=== PATIENT | female | born 1970 | race Caucasian/White ===

== ENCOUNTER 2024-03-22 09:56 | Outpatient (OUT) | payer BC, SELFPAY ==
[2024-03-22 10:23] LABS: Eosinophils Absolute Auto 0.1 10^3/uL (0.0-0.7); Eosinophils Percent Auto 3.2 % (0.9-7.0); Hematocrit 40.6 % (36.0-48.0); Hemoglobin 13.2 g/dL (12.0-16.0); Immature Granulocytes Abs Auto 0.02 10^3/uL (0.00-0.03); Immature Granulocytes Pct Auto 0.6 % (0.0-0.5); Lymphocytes Absolute Auto 0.9 10^3/uL (1.2-3.8); Lymphocytes Percent Auto 29.6 % (20.5-60.0); Mean Corpuscular HGB Conc 32.5 g/dL (29.9-35.2); Mean Corpuscular Hemoglobin 29.3 pg (26.7-34.0); Mean Corpuscular Volume 90.2 fL (81.0-99.0); Mean Platelet Volume 9.5 fL (9.5-13.5); Monocytes Absolute Auto 0.4 10^3/uL (0.3-0.8); Monocytes Percent Auto 11.3 % (1.7-12.0); Neutrophils Absolute Auto 1.7 10^3/uL (1.4-6.5); Neutrophils Percent Auto 54.3 % (43.0-75.0); Platelet Count 248 10^3/uL (150-450); Red Cell Distribution Width 12.9 % (11.0-15.0); White Blood Count 3.1 10^3/uL (4.0-11.0)
[2024-03-22 10:43] LABS: Estimated Average Glucose 114 mg/dL; Glycohemoglobin A1C 5.6 % (4.5-6.2)
[2024-03-22 11:19] LABS: Alanine Aminotransferase 33 U/L (14-59); Albumin Level 3.6 g/dL (3.4-5.0); Alkaline Phosphatase 84 U/L (46-116); Anion Gap 11.6; Aspartate Amino Transferase 20 U/L (15-37); BUN Creatinine Ratio 19.2; Bilirubin Total 0.6 mg/dL (0.2-1.0); Calcium 9.2 mg/dL (8.5-10.1); Carbon Dioxide 28.1 mmol/L (21.0-32.0); Chloride 104 mmol/L (98-107); Chol HDL Ratio 5.5; Cholesterol 270 mg/dL (<=200); Estimated GFR (African America >60 (>=60); Estimated GFR (Non-African Ame >60 (>=60); Free T3 2.57 pg/mL (2.18-3.98); Globulin 3.7 g/dL; Glucose 100 mg/dL (74-106); HDL Cholesterol 49 mg/dL (40-60); Potassium 3.7 mmol/L (3.5-5.1); Sodium 140 mmol/L (136-145); Thyroid Stimulating Hormone 1.618 uIU/mL (0.358-3.740); Total Protein 7.3 g/dL (6.4-8.2); Triglycerides 139 mg/dL (<=150); VLDL CHOLESTEROL 27.8 mg/dL
[2024-03-23 08:11] LABS: Insulin 12.5 uIU/mL (2.6-24.9)
== END 2024-03-22 09:57 | disposition home or self-care (01) ==
LOC: LAB 10:00
PROVIDERS: PCP Family Medicine; Visit Provider Family Medicine
DX: Z00.00 Encounter for general adult medical examination without abnormal findings (principal)
CPT/HCPCS: 36415; 80053; 80061; 83036; 83525; 83540; 84436; 84443; 84481; 85025

== ENCOUNTER 2024-06-14 08:31 | Emergency (ER) | payer BC, SELFPAY ==
[2024-06-14 08:41] VITALS: BP 170/100; PULSE 85; TEMP 36.6; O2SAT 97; BMI 35.5
--- NOTE | 2024-06-14 08:52 | ECG_ITS ---
The [facility] Test Date: 2024-06-14 Pat Name: JOSSELINE KISER Department: Room: - Gender: Female Pressure Vessel Inspector: : 1970 Requested By: LYNNE LENNON Order Number: [id number] Reading MD: LYNNE LENNON Measurements Intervals [place] Rate: 74 P: 33 MO: 154 QRS: 63 QRSD: 82 T: 42 QT: 360 QTc: 388 Interpretive Statements 1100 Sinus rhythm 9110 normal ECG No previous ECG available for comparison Electronically Signed On 06-15-2024 6:36:55 EST by LYNNE LENNON
--- NOTE | 2024-06-14 08:52 | US_ITS ---
The [address] [address] Patient Name: JOSSELINE KISER MRN: [id number] date: 1970 Sex: F Assigned Patient Location: ER Current Patient Location: ER Accession/Order Number: [id number] Exam Date: 06/14/2024 09:30 Report Date: 06/14/2024 09:56 At the request of: NIGEL RAMOS Procedure: US right upper quadrant EXAM: US right upper quadrant HISTORY: Pain COMPARISON: None. TECHNIQUE: Grayscale, color and Doppler FINDINGS: The liver is normal in size and contour measuring 15.5 cm in length. Diffuse increase in hepatic echotexture suggesting hepatic steatosis. Hepatopedal flow in the main portal vein with velocity 27 cm/s The gallbladder is normal. The wall measures 1.1 mm. Negative sonographic Ivan sign. The common bile duct measures 2.2 mm Visualized pancreas is normal The right kidney is normal measuring 10.7 x 4.9 x 4.8 cm No ascites US/US right upper quadrant IMPRESSION: Echogenic liver suggesting hepatic steatosis Electronically authenticated by: SUNDAY CALDERON Date: 06/14/2024 09:56
--- OUTSIDE RECORDS SUMMARY | 2024-06-14 08:56 | XMS_ITS | CCD ---
Author Organization [facility] Care Team Providers Care Senior Professional Services Consultant Name Role Phone DR LYNNE LENNON Admitting DR LYNNE Rodney Attending Unavailable DR LYNNE LENNON Primary Care Unavailable ALEX HERMAN Attending Unavailable ALEX HERMAN Attending Unavailable Allergies Allergy Classification Reported Allergen(s) Allergy Type Date of Onset Reaction(s) Facility (1 source) Penicillins Drug allergy (disorder) [facility] Repository (1 source) Sulfonamides (Antibiotic) Drug allergy (disorder) [facility] Encounters Encounter Date Encounter Type Care Provider Facility Start: 09-16-2023 End: 09-17-2023 ambulatory ALEX Scarlett JAFFEO Not Available Start: 09-01-2023 End: 09-02-2023 ambulatory ALEX Scarlett JAFFEO Not Available Start: 04-23-[address] LYNNE LENNON Facility : Payers Date Payer Category Payer Unknown [id number] 1970 Unknown [id number] 1970 Unknown [id number] 1970 Unknown [id number] 2.16.84 [id number] 1959 Self-pay [id number] Summary Purpose Family History No Family History Records FoundNo Family History Records Found Advance Directives No Advanced Directives Records FoundNo Advanced Directives Records Found Additional Source Comments INFORMATION SOURCE (unrecogn ized section and content) DATE CREATED AUTHOR 04/23/2022 [facility] DATE CREATED AUTHOR 'Luis Manuel ORGANIZ [employer] 09/21/2023 [facility] EPIC FOR RECORDS PERTAINING TO PATIENTS WHO ARE OR HAVE BEEN ENROLLED IN A CHEMICAL DEPENDENCY/SUBSTANCEABUSE PROGRAM, SOME INFORMATION MAY BE OMITTED. This clinical summary was aggregated from multiple sources. Caution should be exercised in using it in the provision of clinical care. This summary normalizes information from multiple sources, and as a consequence, information in this document may materially change the coding, format and clinical context of patient data. In addition, data may be omitted in some cases. CLINICAL DECISIONS SHOULD BE BASED ON THE PRIMARY CLINICAL RECORDS. [facility]. provides no warranty or guarantee of the accuracy or completeness of information in this document.
[2024-06-14] MEDS: ONDANSETRON PF 4 MG/2 ML VIAL IV (09:00)
[2024-06-14] MEDS: MORPHINE SULFATE 4 MG/ML VIAL IV ×2 (09:00→10:34)
[2024-06-14 09:03] LABS: Bilirubin Urine NEGATIVE (NEGATIVE); Blood Urine MODERATE (NEGATIVE); Clarity Urine CLEAR (CLEAR); Color Urine LT. YELLOW (YELLOW); Glucose Urine UA NEGATIVE (NEGATIVE); Ketones Urine NEGATIVE (NEGATIVE); Leukocyte Esterase Urine NEGATIVE (NEGATIVE); Nitrite Urine NEGATIVE (NEGATIVE); Protein Urine NEGATIVE (NEG/TRACE); Urobilinogen Urine 0.2 EU/dL (0.2-1.0)
[2024-06-14 09:03] LABS: Basophils Percent Auto 0.5 % (0.2-2.0); Eosinophils Absolute Auto 0.1 10^3/uL (0.0-0.7); Eosinophils Percent Auto 0.9 % (0.9-7.0); Hemoglobin 13.8 g/dL (12.0-16.0); Immature Granulocytes Abs Auto 0.02 10^3/uL (0.00-0.03); Immature Granulocytes Pct Auto 0.4 % (0.0-0.5); Lymphocytes Percent Auto 17.7 % (20.5-60.0); Mean Corpuscular HGB Conc 32.1 g/dL (29.9-35.2); Mean Corpuscular Hemoglobin 29.7 pg (26.7-34.0); Mean Corpuscular Volume 92.7 fL (81.0-99.0); Mean Platelet Volume 9.6 fL (9.5-13.5); Monocytes Absolute Auto 0.4 10^3/uL (0.3-0.8); Monocytes Percent Auto 7.8 % (1.7-12.0); Neutrophils Percent Auto 72.7 % (43.0-75.0); Platelet Count 286 10^3/uL (150-450); Red Blood Count 4.64 10^6/uL (4.20-5.40); Red Cell Distribution Width 13.2 % (11.0-15.0); White Blood Count 5.5 10^3/uL (4.0-11.0)
--- NOTE | 2024-06-14 09:03 | ED.ABDPAIN1 ---
HPI - Abdominal Pain General Chief Complaint: Abdominal Pain Stated Complaint: abdominal pain Time Seen by Provider: 06/14/24 08:45 Source: patient Mode of arrival: walk-in Limitations: no limitations History of Present Illness HPI narrative: 53-year-old female presents for abdominal pain. It is in her right upper quadrant and this time it started yesterday. She has had pains like this on and off for about a year and has not had it looked at. This event is the worst that she has had in the past year. It is associated with nausea and vomiting. No trauma or fever. Related Data Home Medications ?Medication ?Instructions ?Recorded ?Confirmed aripiprazole 2 mg tablet 2 mg PO DAILY 06/14/24 06/14/24 carvedilol 12.5 mg tablet 12.5 mg PO BID 06/14/24 06/14/24 desvenlafaxine succinate 100 mg 100 mg PO DAILY 06/14/24 06/14/24 tablet,extended release 24 hr promethazine 25 mg tablet 25 mg PO DAILY 06/14/24 06/14/24 simvastatin 20 mg tablet 20 mg PO DAILY 06/14/24 06/14/24 Previous Rx's ?Medication ?Instructions ?Recorded acetaminophen 300 mg-codeine 30 mg 1 tab PO Q6H PRN pain 5 days #20 06/14/24 tablet tabs dicyclomine 10 mg capsule 10 mg PO QID PRN abdominal pain 06/14/24 #20 caps ondansetron 4 mg disintegrating 4 mg PO Q6H PRN nausea and 06/14/24 tablet vomiting #20 tabs Allergies Allergy/AdvReac Type Severity Reaction Status Date / Time Sulfa (Sulfonamide AdvReac Severe Swelling Verified 06/14/24 08:39 Antibiotics) of Lip/Tongue/Throat Penicillins AdvReac Unknown Unknown Verified 06/14/24 08:39 Review of Systems ROS Narrative A ten point review of systems is negative except as noted above. Exam Narrative Exam Narrative: Nurses note and vital signs reviewed and patient is not hypoxic. General: The patient appears uncomfortable Skin: Warm, dry, no pallor noted. There is no rash noted. Head: Normocephalic, atraumatic Eye: Normal conjunctiva, no drainage Ears, Nose, Mouth, and Throat: oral mucosa is moist. Nares patent. Cardiovascular: Regular Rate and Rhythm Respiratory: Patient is in no distress, no accessory muscle use, lungs are clear to auscultation, no wheezing, rales or rhonchi Back: non-tender GI: Tender only in the right upper quadrant without mass. The rest of the abdomen is nontender, no rebound. Musculoskeletal: The patient has no evidence of calf tenderness, no pitting edema, symmetrical pulses noted bilaterally Neurological: A&O, normal speech Psychiatric: Cooperative Constitutional Vital Signs, click to edit/add: Last Vital Signs Temp 98.7 F 06/14/24 10:31 Pulse 77 06/14/24 10:31 Resp 20 06/14/24 10:31 BP 155/100 H 06/14/24 10:31 Pulse Ox 98 06/14/24 10:31 O2 Del Method Room Air 06/14/24 10:31 Course Vital Signs Vital signs: Vital Signs Temperature 97.9 F 06/14/24 08:41 Pulse Rate 85 06/14/24 08:41 Respiratory Rate 18 06/14/24 08:41 Blood Pressure 170/100 H 06/14/24 08:41 Pulse Oximetry 97 06/14/24 08:41 Oxygen Delivery Method Room Air 06/14/24 08:41 Temperature 98.7 F 06/14/24 10:31 Pulse Rate 77 06/14/24 10:31 Respiratory Rate 20 06/14/24 10:31 Blood Pressure 155/100 H 06/14/24 10:31 Pulse Oximetry 98 06/14/24 10:31 Oxygen Delivery Method Room Air 06/14/24 10:31 MDM - Abdominal Pain MDM Narrative Medical decision making narrative: Gallbladder ultrasound and CT are both negative. Her blood work is negative. Urine shows microscopic hematuria and culture is pending. She will follow-up with her PCP regarding the microscopic hematuria. Treatment diagnosis and follow-up were discussed with the patient. Differential Diagnosis Differential diagnosis: Likely abdominal pain, constipation, diverticulitis, gastroenteritis, pancreatitis and small bowel obstruction Lab Data Attestation: I reviewed the patient's lab results. Labs: Lab Results 06/14/24 06/14/24 Range/Units 08:48 08:53 WBC 5.5 (4.0-11.0) 10^3/uL RBC 4.64 (4.20-5.40) 10^6/uL Hgb 13.8 (12.0-16.0) g/dL Hct 43.0 (36.0-48.0) % MCV 92.7 (81.0-99.0) fL MCH 29.7 (26.7-34.0) pg MCHC 32.1 (29.9-35.2) g/dL RDW 13.2 (11.0-15.0) % Plt Count 286 (150-450) 10^3/uL MPV 9.6 (9.5-13.5) fL Neut % (Auto) 72.7 (43.0-75.0) % Lymph % (Auto) 17.7 L (20.5-60.0) % Mobile % (Auto) 7.8 (1.7-12.0) % Eos % (Auto) 0.9 (0.9-7.0) % Baso % (Auto) 0.5 (0.2-2.0) % Neut # (Auto) 4.0 (1.4-6.5) 10^3/uL Lymph # (Auto) 1.0 L (1.2-3.8) 10^3/uL Mobile # (Auto) 0.4 (0.3-0.8) 10^3/uL Eos # (Auto) 0.1 (0.0-0.7) 10^3/uL Baso # (Auto) 0.0 (0.0-0.1) 10^3/uL Abs Immat Gran (auto) 0.02 (0.00-0.03) 10^3/uL Imm/Tot Granulo (auto) 0.4 (0.0-0.5) % Sodium 145 (136-145) mmol/L Potassium 3.8 (3.5-5.1) mmol/L Chloride 107 (98-107) mmol/L Carbon Dioxide 30.4 (21.0-32.0) mmol/L Anion Gap 11.4 BUN 10.0 (7.0-18.0) mg/dL Creatinine 0.74 (0.55-1.02) mg/dL Est GFR ( Amer) >60 (>=60 mL/min/1.73m^2) Est GFR (Non-Af Amer) >60 (>=60 mL/min/1.73m^2) BUN/Creatinine Ratio 13.5 Glucose 123 H (74-106) mg/dL Calcium 9.0 (8.5-10.1) mg/dL Total Bilirubin 0.6 (0.2-1.0) mg/dL Direct Bilirubin 0.1 (0.0-0.2) mg/dL AST 25 (15-37) U/L ALT 39 (14-59) U/L Alkaline Phosphatase 88 (46-116) U/L Total Protein 7.2 (6.4-8.2) g/dL Albumin 3.7 (3.4-5.0) g/dL Globulin 3.5 g/dL Albumin/Globulin Ratio 1.1 Amylase 41 (25-115) U/L Lipase 23.0 (16.0-77.0) U/L Urine Color Lt. yellow (YELLOW) Urine Clarity Clear (CLEAR) Urine pH 6.0 (5.0-9.0) Ur Specific [place] 1.010 (1.005-1.025) Urine Protein Negative (NEG/TRACE) mg/dL Urine Glucose (UA) Negative (NEGATIVE) mg/dL Urine Ketones Negative (NEGATIVE) mg/dL Urine Occult Blood Moderate A (NEGATIVE) Urine Nitrite Negative (NEGATIVE) Urine Bilirubin Negative (NEGATIVE) Urine Urobilinogen 0.2 (0.2-1.0) EU/dL Ur Leukocyte Esterase Negative (NEGATIVE) Urine RBC 5-10 A (0-2) #/HPF Urine WBC None seen (NONE SEEN) #/HPF Ur Squamous Epith Cells Few A (NONE/RARE) #/LPF Urine Crystals None seen (None Seen) #/HPF Urine Bacteria Small A (NONE SEEN) #/HPF Urine Casts None seen (NONE SEEN) #/LPF Urine Mucus None seen (NONE SEEN) Ur Culture Indicated? Yes Imaging Data CT scan - abdomen: Radiologist's impression: ITS Impressions Upper Quadrant Ultrasound 06/14/24 08:52 IMPRESSION: Echogenic liver suggesting hepatic steatosis Electronically authenticated by: SUNDAY CALDERON Date: 06/14/2024 09:56 Abdomen/Pelvis CT 06/14/24 09:53 IMPRESSION: 1. No acute or suspicious findings to account for patient's right upper quadrant symptoms. Electronically authenticated by: SHONA MCCORMICK Date: 06/14/2024 10:50 ECG Data Attestation: I personally reviewed and interpreted this ECG as follows: (EKG on my interpretation shows a heart rate of 74 no acute findings.) Discharge Plan Discharge Chief Complaint: Abdominal Pain Clinical Impression: Abdominal pain, Microscopic hematuria Patient Disposition: Home, Self-Care Time of Disposition Decision: 11:09 Condition: Good Mode of Transportation: Private Vehicle Prescriptions / Home Meds: New acetaminophen-codeine 300-30 mg tablet 1 tab PO Q6H PRN (Reason: pain) 5 Days Qty: 20 0RF ondansetron 4 mg tablet,disintegrating 4 mg PO Q6H PRN (Reason: nausea and vomiting) Qty: 20 0RF dicyclomine 10 mg capsule 10 mg PO QID PRN (Reason: abdominal pain) Qty: 20 0RF No Action promethazine 25 mg tablet 25 mg PO DAILY aripiprazole 2 mg tablet 2 mg PO DAILY carvedilol 12.5 mg tablet 12.5 mg PO BID desvenlafaxine succinate 100 mg tablet extended release 24 hr 100 mg PO DAILY simvastatin 20 mg tablet 20 mg PO DAILY Print Language: Chadian Instructions: Hematuria (ED), Abdominal Pain (ED) Additional Instructions: Have your urine rechecked by your PCP. There was a small amount of blood in your urine today. Referrals: Lloyd Andrews MD [Primary Care Provider] - 1 week
[2024-06-14 09:14] LABS: Bacteria Urine SMALL #/HPF (NONE SEEN); Cast Seen? NONE SEEN #/LPF (NONE SEEN); Crystals Seen? None Seen #/HPF (None Seen); Mucus Urine NONE SEEN (NONE SEEN); Squamous Epithelial Cell Urine FEW #/LPF (NONE/RARE); Urine Culture Indicated YES; WBC Urine NONE SEEN #/HPF (NONE SEEN)
[2024-06-14 09:18] LABS: Alanine Aminotransferase 39 U/L (14-59); Albumin Globulin Ratio 1.1; Albumin Level 3.7 g/dL (3.4-5.0); Alkaline Phosphatase 88 U/L (46-116); Amylase 41 U/L (25-115); Anion Gap 11.4; Aspartate Amino Transferase 25 U/L (15-37); BUN Creatinine Ratio 13.5; Bilirubin Direct 0.1 mg/dL (0.0-0.2); Bilirubin Total 0.6 mg/dL (0.2-1.0); Carbon Dioxide 30.4 mmol/L (21.0-32.0); Chloride 107 mmol/L (98-107); Estimated GFR (African America >60 (>=60 mL/min/1.73m^2); Estimated GFR (Non-African Ame >60 (>=60 mL/min/1.73m^2); Globulin 3.5 g/dL; Glucose 123 mg/dL (74-106); Potassium 3.8 mmol/L (3.5-5.1); Sodium 145 mmol/L (136-145); Total Protein 7.2 g/dL (6.4-8.2)
[2024-06-14 09:21] VITALS: O2SAT 99
--- NOTE | 2024-06-14 09:53 | CT_ITS ---
[address] [address] Patient Name: JOSSELINE KISER MRN: [id number] date: 1970 Sex: F Assigned Patient Location: ER Current Patient Location: Accession/Order Number: [id number] Exam Date: 06/14/2024 10:12 Report Date: 06/14/2024 10:50 At the request of: NIGEL RAMOS Procedure: CT abdomen pelvis w con EXAMINATION: CT abdomen pelvis w con HISTORY: Right upper quadrant pain COMPARISON: Ultrasound right upper quadrant 06/14/2024 TECHNIQUE: Axial, Coronal, and Sagittal images were obtained without and/or with IV contrast as indicated by examination type. Dose reduction techniques were achieved by using automated exposure control and/or adjustment of mA and/or kV according to patient size and/or use of iterative reconstruction technique. FINDINGS: LUNG BASES: No visible pulmonary or pleural disease. LIVER: Mild fatty infiltration. No enlargement, atrophy, suspicious density, or significant focal lesion. BILIARY: No dilatation or calcification. PANCREAS: No lesion, fluid collection, or abnormal duct dilatation. SPLEEN: No enlargement or focal lesion. ADRENALS: No mass or enlargement. KIDNEYS: No mass, obstruction, or calcification. BOWEL/MESENTERY: Numerous small diverticula scattered along the length of the colon; no acute inflammatory changes. No visible mass, obstruction, or bowel wall thickening. Normal appendix. AORTA/VASCULAR: No aneurysm or dissection. RETROPERITONEUM: No mass or adenopathy. LYMPH NODES: No adenopathy. URINARY BLADDER: No visible focal wall thickening, lesion, or calculus. PELVIC ORGANS: No visible mass. Pelvic organs appropriate for patient age. ABDOMINAL WALL: No mass or hernia. BONES: No bony lesion or fracture. OTHER: Negative. CT/CT abdomen pelvis w con IMPRESSION: 1. No acute or suspicious findings to account for patient's right upper quadrant symptoms. Electronically authenticated by: SHONA MCCORMICK Date: 06/14/2024 10:50
[2024-06-14 10:31] VITALS: BP 155/100; PULSE 77; TEMP 37.1; O2SAT 98
[2024-06-14 11:21] VITALS: BP 148/106; PULSE 78; O2SAT 99
== END 2024-06-14 11:22 | disposition home or self-care (01) ==
PROVIDERS: Emergency Provider Emergency Medicine; PCP Family Medicine
DX: R10.11 Right upper quadrant pain (principal); R31.29 Other microscopic hematuria
CPT/HCPCS: 36415; 74177; 76705; 80048; 80076; 81001; 82150; 83690; 85025; 87086; 93005; 96374; 96375; 96376; 99285; J2270; J2405; Q9967

== ENCOUNTER 2025-01-26 12:55 | Outpatient (OUT) | payer BC, SELFPAY ==
--- OUTSIDE RECORDS SUMMARY | 2024-03-29 03:48 | XMS_ITS ---
Author Organization [facility] in [place] Address [address] [place] [address] Care Team Providers Care Relays Draftsperson Name Role Phone Jared Andrews Primary Care Provider Medications Medication SIG (Take, Route, Fr equency, Duration) Notes Start Date End Date Status Simvastatin 20 MG 1 tablet Orally Once a day for 90 days Active Encounters Encounter Location Date Provider Diagnosis [facility] [address] [place] [address] 03/29/2024 Jared Andrews Well adult Z00.00 Assessments Encounter Date Diagnosis (ICD Code) Assessment Notes Treatment Notes Treatment Clinical Notes Section Notes 03/29/2024 Well adult (ICD-10 - Z00.00) Plan Of Treatment Medication Medication Name Sig Start Date Stop Date Notes Simvastatin 20 MG 1 tablet Orally Once a day for 90 days Progress Notes * TALIADotty HONG LDOB:[birth year] (53 yo F)Acc No.[id number]:03/29/2024 Patient: Dotty WEBB :1970 A ge:53 Y S ex:Female Address:[address] [place] [address] * Refills Refill Simvastatin Tablet, 20 MG, Orally, 90 Tablet, 1 tablet, Once a day, 90 days, Refills=3 * true * Date: Generated for Printi ng/Faxing/eTransmitting on: 0 01/26/2025 01:01 PM EDT
--- OUTSIDE RECORDS SUMMARY | 2024-10-27 07:00 | XMS_ITS ---
Author Organization [facility] in [place] Address [address] [place] [address] Care Team Providers Care Lighting Adviser Name Role Phone Jared Andrews Primary Care Provider Allergies Allergen (clinical drug ingredient) Drug/Non Drug Allergy documented on EMR Reaction Allergy Type Onset Date Status Substance with sulfonamide structure and antibacterial mechanism of action (substance) Sulfa Antibiotics childhood Drug Allergy Active Penicillin childhood Drug Allergy Active REASON FOR VISIT right ear pain- ongoing for a month- stabbing pain goes down face to jaw and into chin, Has tried warm compresses, Tylenol, Motrin, Benadryl Medications Medication SIG (Take, Route, Frequency, Duration) Notes Start Date End Date Status Desvenlafaxine Succinate ER 100 MG TAKE 1 TABLET BY MOUTH EVERY DAY for 90 days Active Imitrex 100 MG 1 tablet Orally as needed at onset of migraine, may repeat in one hour- max 2 daily Active Promethazine HCl 25 MG TAKE 1 TABLET BY MOUTH ONCE DAILY NEEDED 90 DAYS for 90 Active Rexulti 0.5 MG 1 tablet Orally Once a day for 30 day(s) 03/22/2024 Active Carvedilol 12.5 MG TAKE 1 TABLET BY TWICE A DAY for 90 Active Hwuhjpqe-Nwmcyfpva-WQ 3.5-63252-3 4 drops into affected ear Otic Three times a day 10/27/2024 Active Ciprofloxacin HCl 500 MG 1 tablet Orally every 12 hrs for 10 days 10/27/2024 Active Simvastatin 20 MG 1 tablet Orally Once a day for 90 days Active Social History Tobacco Use: Social History Observation Description Date Details (start date - stop date) Former Smoker 07/14/1984 - 07/14/1991 Tobacco Use/Smoking Question Answer Notes Patient is a former smoker When did you start smoking? 07/14/1984 When did you stop smoking? 07/14/1991 Vital Signs Weight 221.4 lbs 10/27/2024 Height 66 in 10/27/2024 Blood pressure systolic 124 mm Hg 10/28/19 25 Blood pressure diastolic 84 mm Hg 025 BMI 35.73 kg/m2 10/27/2024 Encounters Encounter Location Date Provider Diagnosis [facility] [address] [place] [address] 10/27/2024 Jared Andrews Acute otitis media, unspecified otitis media type H66.90 and Otalgia, unspecified laterality H92.09 Assessments Encounter Date Diagnosis (ICD Code) Assessment Notes Treatment Notes Treatment Clinical Notes Section Notes 10/27/2024 Acute otitis media, unspecified otitis media type (ICD-10 - H66.90) You have been prescribed antibiotics for otitis media. Antibiotics may bother your stomach, so try taking them with a light meal (unless instructed otherwise by your pharmacist). It is important to take them until they are finished. You can use ukgu-axb-ditwbxb acetaminophen or ibuprofen if needed for pain. You have been prescribed antibiotics. You should be extra vigilant about hand washing or using hand high lighter gel. You should follow up with your Primary Care Physician or return to clinic if not improving in the next 3-5 days. 10/27/2024 Otalgia, unspecified laterality (ICD-10 - H92.09) Plan Of Treatment Medication Medication Name Sig Start Date Stop Date Notes Dzivorai-Spkcgithv-EG 3.5-70669-8 4 drops into affected ear Otic Three times a day 10/27/2024 Ciprofloxacin HCl 500 MG 1 tablet Orally every 12 hrs for 10 days 10/27/2024 Treatment Notes Assessment Notes Acute otitis media, unspecif ied otitis media type You have been prescribed antibiotics for otitis media. Antibiotics may bother your stomach, so try taking them with a light meal (unless instructed otherwise by your pharmacist). It is important to take them until they are finished. You can use pfzs-esj-tslkjij acetaminophen or ibuprofen if needed for pain. You have been prescribed antibiotics. You should be extra vigilant about hand washing or using hand high lighter gel. You should follow up with your Primary Care Physician or return to clinic if not improving in the next 3-5 days. Next Appt Details Follow Up: 3-5 days, if no i mprovement, Reason: Progress Notes * Dotty BROWN LDOB:[birth year] (54 yo F)Acc No.[id number]:10/27/2024 Progress Note Patient: Dotty WEBB Provider: Aniya Andrews ([facility])MD :1970 A ge:54 Y S ex:Female Date:10/27/2024 Address:[facility] [place], [id number] Check In:10:54 AM ESTCheck O ut:11:57 AM EST Subjective: * Chief Complaints: * R ight ear pain- ongoing for a month- stabbing pain goes down face to jaw and into chinHas tried warm compresses, Tylenol, Motrin, Benadryl * HPI: D epression Screening: PHQ-2 (2015 Edition) T otal Score 0 L ittle interest or pleasure in doing things?�Not at all F eeling down, depressed, or hopeless? N ot at all R ear pain for a month - heat helps. O titis Media: The patient complains of s ymptoms of an ear infection.� The symptoms have been present for 1 -2 days. The symptoms are m oderate. Symptomatic treatment has included O TC medication. Associated symptoms include p ain in one or both ears, fever. * ROS: E NT: Comments S ee HPI for details. C ardiovascular: Edema d enies. P alpitations d enies. � R espiratory: Chest pain d enies. C ough d enies. � G astrointestinal: Abdominal pain d enies. D ecreased appetite d enies. S kin: Rash d enies. * Active Problem List E78.00 Pure hypercholestero lemia, unspecified Modified On:03/20/2023W/U Status:confirmed I10 Essential (primary) hypertension Modified On:03/20/2023/U Status:confirmed F32.9 Major depressive dis order, single episode, unspecified Modified On:03/20/2023 Status:confirmed G43.909 Migraine, unspecifie d, not intractable, without status migrainosus Modified On:03/20/2023U Status:confirmed F43.10 Post-traumatic stres s disorder, unspecified Modified On:03/20/2023U Status:confirmed Z00.00 Well adult Modified On:03/24/2023 Status:confirmed * Medical History: * Surgical History: T ONSILLECTOMY,UNDER 12YRS DELIVERY x3 * Hospitalization/Major Diagno stic Procedure: D enies Past Hospitalization * Family History: F ather: . M other: alive. S ister(s): alive, Lupus, diagnosed with Diabetes mellitus without mention of complication, type II or unspecified type, not stated as uncontrolled. Son(s): alive. D aughter(s): alive. 2 sister(s) . 1 son(s) , 2 daughter(s) - healthy. .� Unknown to Fathers medical history. * Social History: T obacco Use: T obacco Use/Smoking P atient is a f ormer smoker W hen did you start smoking? 0 07/14/1984 W hen did you stop smoking? 0 07/14/1991 * Medications: T akingCarvedilol 12.5 MG Tablet TAKE 1 TABLET BY MOUTH TWICE A DAY Desvenlafaxine Succinate ER 100 MG Tablet Extended Release 24 Hour TAKE 1 TABLET BY MOUTH EVERY DAY Imitrex(SUMAtriptan Succinate) 100 MG Tablet 1 tablet Orally as needed at onset of migraine, may repeat in one hour- max 2 daily Promethazine HCl 25 MG Tablet TAKE 1 TABLET BY MOUTH ONCE DAILY NEEDED 90 DAYS Rexulti(Brexpiprazole) 0.5 MG Tablet 1 tablet Orally Once a day Simvastatin 20 MG Tablet 1 tablet Orally Once a day Medication List reviewed and reconciled with the patientTaking Carvedilol 12.5 MG Tablet TAKE 1 TABLET BY MOUTH TWICE A DAY Taking Desvenlafaxine Succinate ER 100 MG Tablet Extended Release 24 Hour TAKE 1 TABLET BY MOUTH EVERY DAY Taking Imitrex(SUMAtriptan Succinate) 100 MG Tablet 1 tablet Orally as needed at onset of migraine, may repeat in one hour- max 2 daily Taking Promethazine HCl 25 MG Tablet TAKE 1 TABLET BY MOUTH ONCE DAILY NEEDED 90 DAYS Taking Rexulti(Brexpiprazole) 0.5 MG Tablet 1 tablet Orally Once a day Taking Simvastatin 20 MG Tablet 1 tablet Orally Once a day Medication List reviewed and reconciled with the patient * Allergies: S ulfa Antibiotics: childhood - AllergyPenicillin: childhood - Allergyno[Allergies Verified] Objective: * Vitals: W t:221.4lbs, Ht: 66 in, BP:124/84mm Hg, BMI:35.73Index, Ht-cm: 167.64 cm, Wt-k.43 kg. * Examination: G eneral Examination: GENERAL APPEARANCE: in no acute distress, well developed, well nourished. EYES: pupils equal, round, reactive to light and accomodations, sclera non-icteric. ENT: normocephalic, autraumatic. EARS: . ORAL CAVITY: R OE. THROAT: no erythema, no exudate. LUNGS: clear to auscultation bilaterally. CARDIO: regular rate and rhythm, S1, S2 normal, no murmurs. ABDOMEN: soft, nontender, nondistended, bowel sounds present, normal. SKIN: warm and dry, no suspicious lesions. EXTREMITIES: no clubbing, cyanosis, or edema. NEUROLOGIC: nonfocal, motor strength normal upper and lower extremities, sensory exam intact. NECK/THYROID: neck supple, full range of motion, no cervical lymphadenopathy. Assessment: * Assessment: 1. A cute otitis media, unspecified otitis media type - H66.90 (Primary) 2 .�Otalgia, unspecified laterality - H92.09 Plan: * Treatment: * Procedure Codes: * Preventive Medicine: Screenings/Counseling: B [place] ACTION PLAN Above Normal BMI Follow-up D ietary management education, guidance, and counseling * Follow Up: 3 -5 days, if no improvement * * Sign off status: Completed Visit Status: C HK (Check Out) true * Provider: Aniya Andrews ([facility])MD Date: 0 10/27/2024 Generated for Shivam ramírez/Dafne/eTransmitting on: 0 01/26/2025 01:01 PM EDT History and Physical Notes * HPI (History of Present Illness) Category Sub-Category Detail Notes Category Not es Depression Screening PHQ-2 (2015 Edition) Total Score: 0 R ear pain for a month - heat helps Little interest or pleasure in doing thi ngs?: Not at all Feeling down, depressed, or hopeless?: N ot at all Otitis Media The patient complains of symptoms of an e ar infection The symptoms have been present for 1-2 d ays The symptoms are moderate Symptomatic treatment has included OTC m edication Associated symptoms include pain in one or both ears, fever Examination Category Sub-Category Detail Notes Category Not es General Examination GENERAL APPEARANCE: in no ac radha distress, well developed, well nourished EYES: pupils equal, round, reactive to light and accomodations, sclera non-icteric EARS: THROAT: no erythema, no exud ate CARDIO: regular rate and rhy thm, S1, S2 normal, no murmurs LUNGS: clear to auscultatio n bilaterally ABDOMEN: soft, nontender, non distended, bowel sounds present, normal NEUROLOGIC: nonfocal, motor stre ngth normal upper and lower extremities, sensory exam intact SKIN: warm and dry, no ashutosh picious lesions EXTREMITIES: no clubbing, cyanosi s, or edema ORAL CAVITY: R OE ENT: normocephalic, autra umatic NECK/THYROID: neck supple, full ra nge of motion, no cervical lymphadenopathy
--- OUTSIDE RECORDS SUMMARY | 2025-01-25 04:45 | XMS_ITS ---
Author Organization [facility] in [place] Address [address] [place] [address] Care Team Providers Care Automatic Equipment Technician Name Role Phone Jared Andrews Primary Care Provider Allergies Allergen (clinical drug ingredient) Drug/Non Drug Allergy documented on EMR Reaction Allergy Type Onset Date Status Substance with sulfonamide structure and antibacterial mechanism of action (substance) Sulfa Antibiotics childhood Drug Allergy Active Penicillin childhood Drug Allergy Active REASON FOR VISIT Dry Mouth, Oral Sores Medications Medication SIG (Take, Route, Frequency, Duration) Notes Start Date End Date Status Promethazine HCl 25 MG TAKE 1 TABLET BY MOUTH ONCE DAILY NEEDED 90 DAYS for 90 PRN Active Simvastatin 20 MG 1 tablet Orally Once a day for 90 days Active Triamcinolone Acetonide 0.1 % 1 application do not rinse afterwards and avoid eating or drinking for 30 minutes Mouth/Throat Twice a day for 30 days 01/25/2025 Active Carvedilol 12.5 MG TAKE 1 TABLET BY PAOLO TH TWICE A DAY for 90 Active Desvenlafaxine Succinate ER 100 MG TAKE 1 TABLET BY MOUTH EVERY DAY for 90 days Active valACYclovir HCl 1 GM 1 tablet Orally ti d for 10 days 01/25/2025 Active Social History Tobacco Use: Social History Observation Description Date Details (start date - stop date) Former Smoker 07/14/1984 - 07/14/1991 Tobacco Use/Smoking Question Answer Notes Patient is a former smoker When did you start smoking? 07/14/1984 When did you stop smoking? 07/14/1991 AUDIT-C (Standard) Question Answer Notes Did you have a drink containing alcohol in the p ast year? No Points 0 Interpretation Negative Problems Problem Type SNOMED Code ICD Code Onset Dates Problem Status W/U Status Risk Notes Problem Aphthous stomatitis (762161274) Aphthous stomatitis (K12.0) Active confirmed Problem Dry mouth (52905699) Dry mouth (R68.2) Active confirmed Vital Signs Weight 207.4 lbs 01/25/2025 Height 66 in 01/25/2025 Blood pressure systolic 138 mm Hg 01/26/20 25 Blood pressure diastolic 88 mm Hg 025 BMI 33.47 kg/m2 01/25/2025 Encounters Encounter Location Date Provider Diagnosis [facility] [address] [place] [address] 01/25/2025 Jared Hoy Aphthous stomatitis K12.0 ; Dry mouth R68.2 ; Pure hypercholesterolemia, unspecified E78.00 and Well adult Z00.00 Assessments Encounter Date Diagnosis (ICD Code) Assessment Notes Treatment Notes Treatment Clinical Notes Section Notes 01/25/2025 Aphthous stomatitis (ICD-10 - K12.0) 01/25/2025 Dry mouth (ICD-10 - R68.2) 01/25/2025 Pure hypercholesterol emia, unspecified (ICD-10 - E78.00) 01/25/2025 Well adult (ICD-10 - Z00.00) Plan Of Treatment Medication Medication Name Sig Start Date Stop Date Notes Triamcinolone Acetonide 0.1 % 1 applicat ion do not rinse afterwards and avoid eating or drinking for 30 minutes Mouth/Throat Twice a day for 30 days 01/25/2025 valACYclovir HCl 1 GM 1 tablet Orally ti d for 10 days 01/25/2025 Pending Test Test Name Order Date HEMOGLOBIN A1C (GLYCO) 01/25/2025 IRON, TOTAL 01/25/2025 LIPID PANEL (CHOL/TRIG/HDL/LDL) 01/26/20 25 VITAMIN D, 25 LEVEL (TOTAL) 01/25/2025 Insulin Level 01/25/2025 STOOL OCCULT BLOOD 01/25/2025 THYROID PANEL (T4/TSH/FREE T3) 5 MM screening mammo BI 01/25/2025 CMP (COMP MET ARTHUR) w/eGFR CKD-EPI 2024 CBC WITH DIFF 01/25/2025 Progress Notes * Dotty BROWN LDOB:[birth year] (54 yo F)Acc No.[id number]:01/25/2025 UNLOCKED PROGRESS NOTE Progress Note Patient: Dotty WEBB Provider: Aniya Andrews ([facility])MD :1970 A ge:54 Y S ex:Female Date:01/25/2025 Address:[facility] [place], [id number] Check In:08:34 AM ESTCheck O ut:09:13 AM EST Subjective: * Chief Complaints: * 1 . Dry Mouth, Oral Sores. * HPI: G eneral: Dry mouth and some mouth sores - tehy are al over the mouth - getting more of them - no resolving. * ROS: E ENT: hearing changes d enies. v isual changes d enies.�non-healing mouth sores d enies. s wollen glands or neck lumps d enies. h oarseness d enies. s ore throat d enies. d ifficulty swallowing d enies. n ose bleeds d enies. n margot congestion d enies. e ar ache d enies. e ar discharge�denies. r inging in ears d enies. l ight sensitivity d enies. e ye pain d enies. b lurring d enies. e ye irritation d enies. d ouble vision d enies.�vision loss d enies. G eneral/Constitutional: Sweats: D enies. F atigue d enies. S leep problems d enies. A norexia d enies. M alaise d enies. W eight loss d enies.�Fatigue or Weakness d enies. F ever or Chills d enies. C ardiovascular: Shortness of Breath w/lying flat d enies. L ightheadedness/dizziness d enies. C hest tightness/ heavy pressure d enies. S welling of legs, ankles, or feet d enies. W aking up with shortness of breath d enies. C hest pain denies. P alpitations d enies. W eight gain d enies. R espiratory: Chronic or frequent cough d enies. C oughing up blood�denies. D ifficulty breathing d enies. P roductive cough d enies. S noring�denies. S hortness of breath that awakens from sleep (PND) d enies. C hest pain d enies. S putum production d enies. W heezing d enies. M usculoskeletal: Joint pain d enies. J oint Fluid d enies. B ack pain d enies. K nee pain d enies. N riley pain d enies. J oint Stiffness d enies. M uscle cramps d enies. W eakness of muscles d enies. A rthritis d enies. M uscle aches d enies. P ain in shoulder(s) d enies. S wollen joints d enies. * Medical History: E xternal Otitis- Left Ear, Elbow Tendonitis, Conjunctivitis, Abdominal Pain- Right Upper Quadrant, Back Pain, Muscle Spasms, Hypertension, Depression, Hypercholesterolemia, Migraine, Post traumatic stress disorder. * Surgical History: T ONSILLECTOMY,UNDER 12YRS , DELIVERY x3 . * Hospitalization/Major Diagno stic Procedure: D enies Past Hospitalization. * Family History: F ather: . M [...] hen did you stop smoking? 0 07/14/1991 D rug/Alcohol: A GOLDEN-C (Standard) D id you have a drink containing alcohol in the past year? N o P oints 0 I nterpretation N egative * Medications: T aking Carvedilol 12.5 MG Tablet TAKE 1 TABLET BY MOUTH TWICE A DAY , Taking Desvenlafaxine Succinate ER 100 MG Tablet Extended Release 24 Hour TAKE 1 TABLET BY MOUTH EVERY DAY , Taking Promethazine HCl 25 MG Tablet TAKE 1 TABLET BY MOUTH ONCE DAILY NEEDED 90 DAYS , Notes to Pharmacist: PRN, Taking Simvastatin 20 MG Tablet 1 tablet Orally Once a day , Discontinued Ciprofloxacin HCl 500 MG Tablet 1 tablet Orally every 12 hrs , Discontinued Imitrex(SUMAtriptan Succinate) 100 MG Tablet 1 tablet Orally as needed at onset of migraine, may repeat in one hour- max 2 daily , Notes to Pharmacist: PRN, Discontinued Pyocntzg-Ijycmdpyd-SB 3.5-14092-6 Suspension 4 drops into affected ear Otic Three times a day , Discontinued Rexulti(Brexpiprazole) 0.5 MG Tablet 1 tablet Orally Once a day , Medication List reviewed and reconciled with the patient * Allergies: S ulfa Antibiotics: childhood - Allergy, Penicillin: childhood - Allergy. Objective: * Vitals: W t:207.4lbs, Ht: 66 in, BP:138/88mm Hg, BMI:33.47Index, Ht-cm: 167.64 cm, Wt-k.08 kg. * Examination: P hysical Exam: GENERAL: w ell developed, well nourished, in no acute distress. HEAD: n ormocephalic/atraumatic. EYES: p upils equal, round and reactive to light, conjunctivae and sclerae normal. EARS: n o deformity or lesion of external ear, canals and TM appear normal bilaterally, TM's intact, not inflamed with normal light reflex, hearing grossly normal to conversational speech. NOSE: n o deformity, discharge, inflammation, or lesions.� MOUTH: m ultiple aphthous type ulcers. NECK: n riley supple, no masses or palpable cervical nodes, trachea midline, thyroid without nodules, masses, tenderness, or enlargement. CHEST: n o chest wall deformity, no chest wall tenderness.� LUNGS: n ormal respiratory effort and clear to auscultation, no wheezes, rales, or rhonchi, good air exchange. CARDIO: r egular rate and rhythm, normal S1 and S2, nor murmur, rub, or gallop. PULSES: n ormal capillary refill. ABDOMEN: s oft, non-distended, non-tender, no masses. MUSCULOSKELETAL: n o deformity or scoliosis noted, normal range of motion, joints normal, no erythema, edema, effusion, or ecchymosis. EXTREMITY: n o clubbing, cyanosis, edema, or deformity with normal ROM in both upper and lower bilateral extremities. NEUROLOGIC: g rossly normal. SKIN: n o rashes, ulcerations, or suspicious lesions. LYMPH NODES: n o cervical adenopathy, nodes normal. MENTAL STATUS: a lert and oriented x3, normal mood and affect. Assessment: * Assessment: 1. A phthous stomatitis - K12.0 (Primary) 2 . D ry mouth - R68.2 3 . P ure hypercholesterolemia, unspecified - E78.00 4 . W ell adult - Z00.00 Plan: * Treatment: 2. W ell adult L AB: HEMOGLOBIN A1C (GLYCO) L AB: IRON, TOTAL L AB: LIPID PANEL (CHOL/TRIG/HDL/LDL) L AB: VITAMIN D, 25 LEVEL (TOTAL) L AB: Insulin Level L AB: STOOL OCCULT BLOOD L AB: THYROID PANEL (T4/TSH/FREE T3) L AB: CMP (COMP MET ARTHUR) w/eGFR CKD-EPI L AB: CBC WITH DIFF * Preventive Medicine: Screenings/Counseling: B [place] ACTION PLAN Above Normal BMI Follow-up D ietary management education, guidance, and counseling * * Electronic signature of Jared Andrews MD, [phone] on 01/26/2025 at 01:01 PM EDT Sign off status: Pending Visit Status: C HK (Check Out) * Provider: Aniya Andrews ([facility])MD Date: 01/25/2025 Generated for Printi ng/Travisg/eTransmitting on: 01/26/2025 01:01 PM EDT History and Physical Notes * HPI (History of Present Illness) Category Sub-Category Detail Notes Category Not es General Dry mouth and s ome mouth sores - tehy are al over the mouth - getting more of them - no resolving Examination Category Sub-Category Detail Notes Category Not es Physical Exam GENERAL: well developed, well nourished, in no acute distress HEAD: normocephalic/atraum atic EYES: pupils equal, round and reactive to light, conjunctivae and sclerae normal EARS: no deformity or lesi on of external ear, canals and TM appear normal bilaterally, TM's intact, not inflamed with normal light reflex, hearing grossly normal to conversational speech NOSE: no deformity, discha rge, inflammation, or lesions MOUTH: multiple aphthous ty pe ulcers NECK: neck supple, no mass es or palpable cervical nodes, trachea midline, thyroid without nodules, masses, tenderness, or enlargement CHEST: no chest wall deform ity, no chest wall tenderness LUNGS: normal respiratory e ffort and clear to auscultation, no wheezes, rales, or rhonchi, good air exchange CARDIO: regular rate and rhy thm, normal S1 and S2, nor murmur, rub, or gallop PULSES: normal capillary ref ill ABDOMEN: soft, non-distended, non-tender, no masses RECTAL: MUSCULOSKELETAL: no deformity or scol iosis noted, normal range of motion, joints normal, no erythema, edema, effusion, or ecchymosis EXTREMITY: no clubbing, cyanosi s, edema, or deformity with normal ROM in both upper and lower bilateral extremities NEUROLOGIC: grossly normal SKIN: no rashes, ulceratio ns, or suspicious lesions LYMPH NODES: no cervical adenopat hy, nodes normal MENTAL STATUS: alert and oriented x 3, normal mood and affect
--- OUTSIDE RECORDS SUMMARY | 2025-01-26 13:02 | XMS_ITS | Patient Health Record ---
Author Organization [facility] in [place] Address [address] [place] [address] Care Team Providers Care Family Dinner Service Specialist Name Role Phone Jared Lennon Primary Care Provider [phone] Allergies Allergen (clinical drug ingredient) Drug/Non Drug Allergy documented on EMR Reaction Allergy Type Onset Date Status Substance with sulfonamide structure and antibacterial mechanism of action (substance) Sulfa Antibiotics childhood Drug Allergy Active Penicillin childhood Drug Allergy Active Results Component Value Reference Range Notes CBC AUTO DIFF Reviewed date:03/22/2024 08:54:40 PM Interpretation: Performing Lab: Notes/Report: [facility] , White Blood Count 3.1 4.0-11.0 10 3/uL Red Blood Count 4.50 4.20-5.40 10 6/uL Hemoglobin 13.2 12.0-16.0 g/dL Hematocrit 40.6 36.0-48.0 % Mean Corpuscular Volume 90.2 81.0-99.0 fL Mean Corpuscular Hemoglobin 29.3 26.7-34.0 pg Mean Corpuscular HGB Conc 32.5 29.9-35.2 g/dL Red Cell Distribution Width 12.9 11.0-15.0 % Platelet Count 248 150-450 10 3/uL Mean Platelet Volume 9.5 9.5-13.5 fL Neutrophils Percent Auto 54.3 43.0-75.0 % Lymphocytes Percent Auto 29.6 20.5-60.0 % Monocytes Percent Auto 11.3 1.7-12.0 % Eosinophils Percent Auto 3.2 0.9-7.0 % Basophils Percent Auto 1.0 0.2-2.0 % Immature Granulocytes Pct Auto 0.6 0.0-0.5 % Neutrophils Absolute Auto 1.7 1.4-6.5 10 3/uL Lymphocytes Absolute Auto 0.9 1.2-3.8 10 3/uL Monocytes Absolute Auto 0.4 0.3-0.8 10 3/uL Eosinophils Absolute Auto 0.1 0.0-0.7 10 3/uL Basophils Absolute Auto 0.0 0.0-0.1 10 3/uL Immature Granulocytes Abs Auto 0.02 0.00-0.03 10 3/uL Performing Lab: see note [facility] INSULIN Reviewed date:03/23/2024 10:37:53 PM Interpretation: Performing Lab: Notes/Report: [facility] , Insulin 12.5 2.6-24.9 uIU/mL Milking Machine Operator: Wes Bah PhD, Phone: [phone] Performed at: [address] [id number] Performing Lab: see note [facility] LIPASE Reviewed date:06/14/2024 01:30:53 PM Interpretation: Performing Lab: Notes/Report: [facility] , Lipase 23.0 16.0-77.0 U/L Performing Lab: see note [facility] Urine Culture, Routine Reviewed date:06/16/2024 07:37:30 PM Interpretation: Performing Lab: Notes/Report: [facility] , Urine Culture, Routine See Below For Report Urine Culture, Routine Urine Culture, Routine Mixed urogenital aditya Urine Culture, Routine Urine Culture, Routine Less than 10,000 colonies/mL Urine Culture, Routine Urine Culture, Routine Performed at: [facility] Urine Culture, Routine Urine Culture, Routine [address] [place] [phone] Urine Culture, Routine Urine Culture, Routine Milking Machine Operator: Maciel Bah PhD, Phone: [phone] Urine Culture, Routine Performing Lab: see note [facility] LB SEE REPORT - Locomotive Oiler Id information not found for OBX-specific dairy laboratory technician legend US right upper quadrant Reviewed date:06/14/2024 01:30:53 PM Interpretation: Performing Lab: Notes/Report: Source Facility: [place] [address] [place] [address] Ultrasound Report Signed Patient: DOTTY BROWN MR#: [id number] : 1970 Acct:[id number] Age/Sex: 53 / F ADM Date: 06/14/24 Loc: ER Attending Dr: Ordering Physician: Nigel Ramos M.D. Date of Service: 06/14/24 Procedure(s): US right upper quadrant Accession Number(s): [id number] cc: Lynne Lennon M.D.; Nigel Ramos M.D. The [place] [address] Patient Name: DOTTY BROWN MRN: [id number] date: 1970 Sex: F Assigned Patient Location: ER Current Patient Location: ER Accession/Order Number: [id number] Exam Date: 06/14/2024 09:30 Report Date: 06/14/2024 09:56 At the request of: NIGEL RAMOS Procedure: US right upper quadrant EXAM: US right upper quadrant HISTORY: Pain COMPARISON: None. TECHNIQUE: Grayscale, color and Doppler FINDINGS: The liver is normal in size and contour measuring 15.5 cm in length. Diffuse increase in hepatic echotexture suggesting hepatic steatosis. Hepatopedal flow in the main portal vein with velocity 27 cm/s The gallbladder is normal. The wall measures 1.1 mm. Negative sonographic Ivan sign. The common bile duct measures 2.2 mm Visualized pancreas is normal The right kidney is normal measuring 10.7 x 4.9 x 4.8 cm No ascites US/US right upper quadrant IMPRESSION: Echogenic liver suggesting hepatic steatosis Electronically authenticated by: SUNDAY CALDERON Date: 06/14/2024 09:56 Dictated By: Sunday Calderon M.D. Signed By: 06/14/24957 DD/ 5 TD/TT: 3Rd Grade Teacher: [place] [address] Ultrasound Report Signed Patient: ROXANNE BROWN SA MR#: [id number] : 1970 Acct:[id number] Age/Sex: 53 / F ADM Date: 06/14/24 Loc: ER Attending Dr: Ordering Physician: Nigel Ramos M.D. Date of Service: 06/14/24 Procedure(s): US rig ht upper quadrant Accession Number(s): [id number] cc: Lynne Lennon M.D. ; Nigel Ramos M.D. [place] [address] Patient Name: DOTTY BROWN MRN: [id number] date: 1970 Sex: F Assigned Patient Location: ER Current Patient Loca tion: ER Accession/Order Numb er: [id number] Exam Date: 09:30 Report Date: 06/14/2024 09:56 At the request of: NIGEL RAMOS Procedure: US right upper quadrant EXAM: US right upper quadrant HISTORY: Pain COMPARISON: None. TECHNIQUE: Grayscale , color and Doppler FINDINGS: The liver is normal in size and contour measuring 15.5 cm in length. Diffuse increase in hepatic echotexture suggesting hepatic steatosis. Hepatopedal flow in the main portal v ein with velocity 27 cm/s The gallbladder is normal. The wall measures 1.1 mm. Negative sonographic Ivan sign. The com mon bile duct measures 2.2 mm Visualized pancreas is normal The right kidney is normal measuring 10.7 x 4.9 x 4.8 cm No ascites U S/US right upper quadrant IMPRESSION: Echogenic liver suggesting hepatic steatosis Electronically authenticated by: SUNDAY CALDERON Date: 06/14/2024 09:56 Dictated By: Jony Calderon M.D. Signed By: 06/14/24957 DD/ 5 TD/TT: 3Rd Grade Teacher: ECG 12 lead Reviewed date:06/15/2024 08:41:17 PM Interpretation: Performing Lab: Notes/Report: Source Facility: [facility]-[address] [place] [address] [place] [address] Electrocardiograph Report Signed Patient: DOTTY BROWN MR#: [id number] : 1970 Acct:[id number] Age/Sex: 53 / F ADM Date: 06/14/24 Loc: ER Attending Dr: Ordering Physician: Nigel Ramos M.D. Date of Service: 06/14/24 Procedure(s): ECG 12 lead Accession Number(s): [id number] cc: [facility] Test Date: 2024-06-14 Pat Name: DOTTY BROWN Department: Room: - Gender: Female Health Tech: : 1970 Requested By: LYNNE LENNON Order Number: [id number] Reading MD: LYNNE LENNON Measurements Intervals [place] Rate: 74 P: 33 SD: 154 QRS: 63 QRSD: 82 T: 42 QT: 360 QTc: 388 Interpretive Statements 1100 Sinus rhythm 9110 normal ECG No previous ECG available for comparison Electronically Signed On 06-15-2024 6:36:55 EST by LYNNE LENNON Dictated By: Lynne Lennon M.D. Signed By: 06/15/24 0637 DD/ 0923 TD/TT: 3Rd Grade Teacher: [place] [address] Electrocardiograph Report Signed Patient: ROXANNE BROWN SA MR#: [id number] : 1970 Acct:[id number] Age/Sex: 53 / F ADM Date: 06/14/24 Loc: ER Attending Dr: Ordering Physician: Nigel Ramos M.D. Date of Service: 06/14/24 Procedure(s): ECG 12 lead Accession Number(s): [id number] cc: [facility] Test Date: 2024-06-14 Pat Name: DOTTY MENDIETA Department: 24 Room: - Gender: Female Health Tech: : 1970 Requ ested By: LYNNE LENNON Order Number: [id number] Reading MD: LYNNE LENNON Measurements Intervals [place] Rate: 74 P: 33 SD: 154 QRS: 63 QRSD: 82 T: 42 QT: 360 QTc: 388 Interpretive Statements 1100 Sinus rhythm 9110 normal ECG No previous ECG avai lable for comparison Electronically Chayo d On 06-15-2024 6:36:55 EST by LYNNE LENNON Dictated By: Chioma Lennon M.D. Signed By: 06/15/2437 DD/ 2 TD/TT: 3Rd Grade Teacher: [employer] RANDOM W or MICROSCOPIC Reviewed date:06/14/2024 01:30:53 PM Interpretation: Performing Lab: Notes/Report: [facility] , Color Urine LT. YELLOW YELLOW Clarity Urine CLEAR CLEAR Specific [place] Urine 1.010 1.005-1.025 pH Urine 6.0 5.0-9.0 Protein Urine NEGATIVE NEG/TRACE mg/dL Glucose Urine UA NEGATIVE NEGATIVE mg/dL Bilirubin Urine NEGATIVE NEGATIVE Ketones Urine NEGATIVE NEGATIVE mg/dL Blood Urine MODERATE NEGATIVE Nitrite Urine NEGATIVE NEGATIVE Urobilinogen Urine 0.2 0.2-1.0 EU/dL Leukocyte Esterase Urine NEGATIVE NEGATIVE WBC Urine NONE SEEN NONE SEEN #/HPF RBC Urine 5-10 0-2 #/HPF Bacteria Urine SMALL NONE SEEN #/HPF Mucus Urine NONE SEEN NONE SEEN Squamous Epithelial Cell Urine FEW NONE/RARE #/LPF Crystals Seen? None Seen None Seen #/HPF Cast Seen? NONE SEEN NONE SEEN #/LPF Urine Culture Indicated YES Performing Lab: see note ML - [facility] LB PROF CHEM 8 (BAS METB) Reviewed date:06/14/2024 01:30:53 PM Interpretation: Performing Lab: Notes/Report: [facility] , Sodium 145 136-145 mmol/L Potassium 3.8 3.5-5.1 mmol/L Chloride 107 98-107 mmol/L Carbon Dioxide 30.4 21.0-32.0 mmol/L Anion Gap 11.4 Glucose 123 74-106 mg/dL Blood Urea Nitrogen 10.0 7.0-18.0 mg/dL Creatinine 0.74 0.55-1.02 mg/dL Estimated GFR ( Kerrie >60 >=60 mL/min/1.73m 2 Estimated GFR (Non- Delia >60 >=60 mL/min/1.73m 2 BUN Creatinine Ratio 13.5 Calcium 9.0 8.5-10.1 mg/dL Performing Lab: see note ML - [facility] LB LIVER PROFILE Reviewed date:06/14/2024 01:30:53 PM Interpretation: Performing Lab: Notes/Report: [facility] , Bilirubin Total 0.6 0.2-1.0 mg/dL Bilirubin Direct 0.1 0.0-0.2 mg/dL Aspartate Amino Transferase 25 15-37 U/L Alanine Aminotransferase 39 14-59 U/L Alkaline Phosphatase 88 46-116 U/L Total Protein 7.2 6.4-8.2 g/dL Albumin Level 3.7 3.4-5.0 g/dL Globulin 3.5 Albumin Globulin Ratio 1.1 Performing Lab: see note ML - [facility] LB AMYLASE Reviewed date:06/14/2024 01:30:53 PM Interpretation: Performing Lab: Notes/Report: [facility] , Amylase 41 25-115 U/L Performing Lab: see note ML - [facility] LB TSH Reviewed date:03/22/2024 08:54:40 PM Interpretation: Performing Lab: Notes/Report: [facility] , Thyroid Stimulating Hormone 1.618 0.358-3.740 uIU/mL Performing Lab: see note ML - [facility] LB T4 Reviewed date:03/22/2024 08:54:40 PM Interpretation: Performing Lab: Notes/Report: [facility] , T4 Thyroxine 9.50 4.80-13.90 ug/dL Performing Lab: see note - [facility] LB PROF 14(COMP METB) Reviewed date:03/22/2024 08:54:40 PM Interpretation: Performing Lab: Notes/Report: [facility] , Sodium 140 136-145 mmol/L Potassium 3.7 3.5-5.1 mmol/L Chloride 104 98-107 mmol/L Carbon Dioxide 28.1 21.0-32.0 mmol/L Anion Gap 11.6 Glucose 100 74-106 mg/dL Blood Urea Nitrogen 14.0 7.0-18.0 mg/dL Creatinine 0.73 0.55-1.02 mg/dL Estimated GFR ( Kerrie >60 >=60 Estimated GFR (Non- Delia >60 >=60 BUN Creatinine Ratio 19.2 Calcium 9.2 8.5-10.1 mg/dL Bilirubin Total 0.6 0.2-1.0 mg/dL Aspartate Amino Transferase 20 15-37 U/L Alanine Aminotransferase 33 14-59 U/L Alkaline Phosphatase 84 46-116 U/L Total Protein 7.3 6.4-8.2 g/dL Albumin Level 3.6 3.4-5.0 g/dL Globulin 3.7 Albumin Globulin Ratio 1.0 Performing Lab: see note ML - [facility] LIPID PROFILE Reviewed date:03/22/2024 08:54:40 PM Interpretation: Performing Lab: Notes/Report: [facility] , Triglycerides 139 <=150 mg/dL Cholesterol 270 <=200 mg/dL HDL Cholesterol 49 40-60 mg/dL > or =60 mg/dl - LOW CARDIOVASCULAR RISK <40 mg/dl - HIGH CARDIOVASCULAR RISK LDL Cholesterol Calculated 194.0 100-129 mg/dl NEAR OR ABOVE OPTIMAL <100 mg/dl OPTIMAL >190 mg/dl VERY HIGH 130-159 mg/dl BORDERLINE HIGH 160-189 mg/dl HIGH VLDL CHOLESTEROL 27.8 Chol HDL Ratio 5.5 4.4 - 7.1 AVERAGE RISK 7.1 - 11.0 MODERATE RISK 3.3 - 4.4 LOW RISK >11.0 HIGH RISK Performing Lab: see note ML - [facility] IRON Reviewed date:03/22/2024 08:54:40 PM Interpretation: Performing Lab: Notes/Report: [facility] , Iron 70.0 50.0-170.0 ug/dL Performing Lab: see note ML - [facility] LB GLYCOHEMOGLOBIN A1C Reviewed date:03/22/2024 08:54:40 PM Interpretation: Performing Lab: Notes/Report: [facility] , Glycohemoglobin A1C 5.6 4.5-6.2 % > 7.0 ACTION SUGGESTED ADA THERAPEUTIC TARGET < 7.0 ADA RECOMMENDED LIMIT 4.0 - 6.0 Estimated Average Glucose 114 Performing Lab: see note ML - [facility] FREE T3 Reviewed date:03/22/2024 08:54:40 PM Interpretation: Performing Lab: Notes/Report: [facility] , Free T3 2.57 2.18-3.98 pg/mL Performing Lab: see note ML - [facility] CBC AUTO DIFF Reviewed date:06/14/2024 01:30:53 PM Interpretation: Performing Lab: Notes/Report: [facility] , White Blood Count 5.5 4.0-11.0 10 3/uL Red Blood Count 4.64 4.20-5.40 10 6/uL Hemoglobin 13.8 12.0-16.0 g/dL Hematocrit 43.0 36.0-48.0 % Mean Corpuscular Volume 92.7 81.0-99.0 fL Mean Corpuscular Hemoglobin 29.7 26.7-34.0 pg Mean Corpuscular HGB Conc 32.1 29.9-35.2 g/dL Red Cell Distribution Width 13.2 11.0-15.0 % Platelet Count 286 150-450 10 3/uL Mean Platelet Volume 9.6 9.5-13.5 fL Neutrophils Percent Auto 72.7 43.0-75.0 % Lymphocytes Percent Auto 17.7 20.5-60.0 % Monocytes Percent Auto 7.8 1.7-12.0 % Eosinophils Percent Auto 0.9 0.9-7.0 % Basophils Percent Auto 0.5 0.2-2.0 % Immature Granulocytes Pct Auto 0.4 0.0-0.5 % Neutrophils Absolute Auto 4.0 1.4-6.5 10 3/uL Lymphocytes Absolute Auto 1.0 1.2-3.8 10 3/uL Monocytes Absolute Auto 0.4 0.3-0.8 10 3/uL Eosinophils Absolute Auto 0.1 0.0-0.7 10 3/uL Basophils Absolute Auto 0.0 0.0-0.1 10 3/uL Immature Granulocytes Abs Auto 0.02 0.00-0.03 10 3/uL Performing Lab: see note ML - [facility] LB CT abdomen pelvis w con Reviewed date:06/14/2024 01:30:53 PM Interpretation: Performing Lab: Notes/Report: Source Facility: [facility]-[address] [place] [address] [place] [address] CT Scan Report Signed Patient: DOTTY BROWN MR#: [id number] : 1970 Acct:[id number] Age/Sex: 53 / F ADM Date: 06/14/24 Loc: ER Attending Dr: Ordering Physician: Nigel Ramos M.D. Date of Service: 06/14/24 Procedure(s): CT abdomen pelvis w con Accession Number(s): [id number] cc: Lynne Lennon M.D. [place] [id number] Patient Name: DOTTY BROWN MRN: [id number] date: 1970 Sex: F Assigned Patient Location: ER Current Patient Location: ER Accession/Order Number: [id number] Exam Date: 06/14/2024 10:12 Report Date: 06/14/2024 10:50 At the request of: NIGEL RAMOS Procedure: CT abdomen pelvis w con EXAMINATION: CT abdomen pelvis w con HISTORY: Right upper quadrant pain COMPARISON: Ultrasound right upper quadrant 06/14/2024 TECHNIQUE: Axial, Coronal, and Sagittal images were obtained without and/or with IV contrast as indicated by examination type. Dose reduction techniques were achieved by using automated exposure control and/or adjustment of mA and/or kV according to patient size and/or use of iterative reconstruction technique. FINDINGS: LUNG BASES: No visible pulmonary or pleural disease. LIVER: Mild fatty infiltration. No enlargement, atrophy, suspicious density, or significant focal lesion. BILIARY: No dilatation or calcification. PANCREAS: No lesion, fluid collection, or abnormal duct dilatation. SPLEEN: No enlargement or focal lesion. ADRENALS: No mass or enlargement. KIDNEYS: No mass, obstruction, or calcification. BOWEL/MESENTERY: Numerous small diverticula scattered along the length of the colon; no acute inflammatory changes. No visible mass, obstruction, or bowel wall thickening. Normal appendix. AORTA/VASCULAR: No aneurysm or dissection. RETROPERITONEUM: No mass or adenopathy. LYMPH NODES: No adenopathy. URINARY BLADDER: No visible focal wall thickening, lesion, or calculus. PELVIC ORGANS: No visible mass. Pelvic organs appropriate for patient age. ABDOMINAL WALL: No mass or hernia. BONES: No bony lesion or fracture. OTHER: Negative. CT/CT abdomen pelvis w con IMPRESSION: 1. No acute or suspicious findings to account for patient's right upper quadrant symptoms. Electronically authenticated by: SAQIB MONTANO Date: 06/14/2024 10:50 Dictated By: Saqib Montano M.D. Signed By: 06/14/24 1053 DD/ 1050 TD/TT: 3Rd Grade Teacher: The [address] [address] [address] Scan Report Signed Patient: ROXANNE BROWN SA MR#: [id number] : 1970 Acct:[id number] Age/Sex: 53 / F ADM Date: 06/14/24 Loc: ER Attending Dr: Ordering Physician: Nigel Ramos M.D. Date of Service: 06/14/24 Procedure(s): CT abd omen pelvis w con Accession Number(s): [id number] cc: Lynne Lennon M.D. [address] [address] Patient Name: DOTTY BROWN MRN: [id number] date: 1970 Sex: F Assigned Patient Location: ER Current Patient Loca tion: ER Accession/Order Numb er: [id number] Exam Date: 10:12 Report Date: 06/14/2024 10:50 At the request of: NIGEL RAMOS Procedure: CT abdome n pelvis w con EXAMINATION: CT abdo men pelvis w con HISTORY: Right upper quadrant pain COMPARISON: Ultrasou nd right upper quadrant 06/14/2024 TECHNIQUE: Axial, Coronal, and Sagittal images were obtained without and/or with IV contrast as indicated by examination type. Dose reduction techniques were achieved by usi ng automated exposure control and/or adjustment of mA and/or kV according to patient size and/or use of iterative reconstruction technique. FINDINGS: LUNG BASES: No visib le pulmonary or pleural disease. LIVER: Mild fatty infiltration. No enlargement, atrophy, suspicious density, or significant focal lesion. BILIARY: No dilatati on or calcification. PANCREAS: No lesion, fluid collection, or abnormal duct dilatation. SPLEEN: No enlargeme nt or focal lesion. ADRENALS: No mass or enlargement. KIDNEYS: No mass, obstruction, or calcification. BOWEL/MESENTERY: Num erous small diverticula scattered along the length of the colon; no acute inflammatory changes. No visible mass, obstruction, or bowel wall thickening. Nor mal appendix. AORTA/VASCULAR: No aneurysm or dissection. RETROPERITONEUM: No mass or adenopathy. LYMPH NODES: No adenopathy. URINARY BLADDER: No visible focal wall thickening, lesion, or calculus. PELVIC ORGANS: No vi sible mass. Pelvic organs appropriate for patient age. ABDOMINAL WALL: No m ass or hernia. BONES: No bony lesio n or fracture. OTHER: Negative. C T/CT abdomen pelvis w con IMPRESSION: 1. No acute or suspi cious findings to account for patient's right upper quadrant symptoms. Electronically authenticated by: SAQIB MONTANO Date: 06/14/2024 10:50 Dictated By: Saqib Montano M.D. Signed By: 06/14/241052 DD/ 49 TD/TT: 3Rd Grade Teacher: Reason For Referral No Information Medications Medication SIG (Take, Route, Frequency, Duration) [...] Problem Status W/U Status Risk Notes Problem 77800501 Essential (primary) hypertension (I10) Active confirmed Problem 873394346 Major depressive disorder, single episode, unspecified (F32.9) Active confirmed Problem 45907096 Post-traumatic stress disorder, unspecified (F43.10) Active confirmed Problem 19343696 Migraine, unspecified, not intractable, without status migrainosus (G43.909) Active confirmed Problem Well adult (090931818) Well adult (Z00.00) Active confirmed Problem Dry mouth (55054890) Dry mouth (R68.2) Active confirmed Problem Aphthous stomatitis (K12.0) Active confirmed Problem 576585320 Pure hypercholesterole ronna, unspecified (E78.00) Active confirmed Vital Signs Blood pressure diastolic 88 mm Hg 01/25/2025 Height 66 in 01/25/2025 Blood pressure systolic 138 mm Hg 01/25/2025 Weight 207.4 lbs 01/25/2025 BMI 33.47 kg/m2 01/25/2025 Encounters Encounter Location Date Provider Diagnosis [address] [address] 01/25/2025 Jared Hoy Aphthous stomatitis K12.0 ; Dry mouth R68.2 ; Pure hypercholesterolemia, unspecified E78.00 and Well adult Z00.[address] [address] 03/22/2024 Jared Hoy Well adult Z00.[address] [address] 10/27/2024 Jared Hoy Acute otitis media, unspecified otitis media type H66.90 and Otalgia, unspecified laterality H92.[address] [address] 02/16/2024 Jared Hoy [address] [address] 03/22/2024 Jared Hoy Pure hypercholesterolemia, unspecified E78.00 and Other local company intermodal truck driver (current) drug therapy Z79.[address] [address] 03/29/2024 Jared Hoy Well adult Z00.00 Assessments Encounter Date Diagnosis (ICD Code) Assessment Notes Treatment Notes Treatment Clinical Notes Section Notes 03/22/2024 Well adult (ICD-10 - Z00.00) 10/27/2024 Acute otitis media, unspecified otitis media type (ICD-10 - H66.90) You have been prescribed antibiotics for otitis media. Antibiotics may bother your stomach, so try taking them with a light meal (unless instructed otherwise by your pharmacist). It is important to take them until they are finished. You can use [id number] acetaminophen or ibuprofen if needed for pain. You have been prescribed antibiotics. You should be extra vigilant about hand washing or using hand bulk coolers installer gel. You should follow up with your Primary Care Physician or return to clinic if not improving in the next 3-5 days. 01/25/2025 Aphthous stomatitis (ICD-10 - K12.0) 01/25/2025 Dry mouth (ICD-10 - R68.2) 03/22/2024 Pure hypercholesterol emia, unspecified (ICD-10 - E78.00) 03/22/2024 Other local company intermodal truck driver (current) drug therapy (ICD-10 - Z79.899) 03/29/2024 Well adult (ICD-10 - Z00.00) 01/25/2025 Pure hypercholesterol emia, unspecified (ICD-10 - E78.00) 10/27/2024 Otalgia, unspecified laterality (ICD-10 - H92.09) 01/25/2025 Well adult (ICD-10 - Z00.00) Plan Of Treatment Pending Test Test Name Order Date CMP (COMPLETE METABOLIC PANEL) 3 CMP (COMPLETE METABOLIC PANEL) 4 HEMOGLOBIN A1C (GLYCO) 03/22/2024 HEMOGLOBIN A1C (GLYCO) 03/24/2023 HEMOGLOBIN A1C (GLYCO) 01/25/2025 IRON, TOTAL 01/25/2025 IRON, TOTAL 03/22/2024 LIPID PANEL (CHOL/TRIG/HDL/LDL) 01/26/20 25 LIPID PANEL (CHOL/TRIG/HDL/LDL) 03/22/20 24 LIPID PANEL (CHOL/TRIG/HDL/LDL) 03/24/20 23 CBC WITH DIFF 03/24/2023 CBC WITH DIFF 03/22/2024 VITAMIN D, 25 LEVEL (TOTAL) 01/25/2025 MAMM Mammograms CAD 03/24/2023 Insulin Level 01/25/2025 Insulin Level 03/22/2024 STOOL OCCULT BLOOD 03/22/2024 STOOL OCCULT BLOOD 01/25/2025 STOOL OCCULT BLOOD 03/24/2023 LIPID PROFILE 03/22/2024 LIVER PROFILE 03/22/2024 THYROID PANEL (T4/TSH/FREE T3) 4 THYROID PANEL (T4/TSH/FREE T3) 3 THYROID PANEL (T4/TSH/FREE T3) 5 MM screening mammo BI 01/25/2025 MM screening mammo BI 03/22/2024 CMP (COMP MET ARTHUR) w/eGFR CKD-EPI 2024 CBC WITH DIFF 01/25/2025 Insurance Providers Payer Name Payer Address Payer Phone Subscriber Number Group Number Insured Name Patient Relationship to Insured Coverage Start Date Coverage End Date [employer] ACCESS PPO PLUS LOCAL PLAN [address] [place] [address] [id number] Sunday Brown Spouse - patient is the spouse of the insured Medical (General) History Medical History History ICD Code External Otitis- Left Ear Elbow Tendonitis Conjunctivitis Abdominal Pain- Right Upper Quadrant Back Pain Muscle Spasms Hypertension I10 Depression F32.A Hypercholesterolemia E78.00 Migraine G43.909 Post traumatic stress disorder F43.10 Surgical History Surgery Date(Month/Year) DELIVERY x3 TONSILLECTOMY,UNDER 12YRS
--- OUTSIDE RECORDS SUMMARY | 2025-01-26 13:02 | XMS_ITS | Clinical Summary ---
Author Organization [facility] Address [address] [place] [address] Care Team Providers Care Military Pay Clerk Name Role Phone Lloyd Andrews MD Primary Care Provider [phone] Allergies Active Allergy Reactions Criticality Noted Date Comments Penicillin G 09/01/2023 Other Reaction(s): childhood Sulfa Antibiotics 09/01/2023 Other Reaction(s): childhood Medications ARIPiprazole (Abilify) 2 MG tablet Take 2 mg by mouth in the morning. Active carvedilol (Coreg) 12.5 MG tablet Take 12.5 mg by mouth in the morning and 12.5 mg before bedtime. Active promethazine (Phenergan) 25 MG tablet Take 25 mg by mouth Active simvastatin (Zocor) 20 MG tablet Take 20 mg by mouth at bedtime Active Family History Medical History Relation Name Comments Heart attack Father Relation Name Status Comments Father Mother Alive Social History Tobacco Use Types Packs/Day Years Used Date Smoking Tobacco: Former Cigarettes Smokeless Tobacco: Never Tobacco Cessation:Counseling Given: Not Answered Alcohol Use Standard Drinks/Week Comments Yes 0 (1 standard drink = 0.6 oz pur e alcohol) Comments No Sex and Gender Information Value Date Recorded Sex Assigned at Not on file Legal Sex Female 3:01 PM EST Gender Identity Not on file Sexual Orientation Not on file Last Filed Vital Signs Vital Sign Reading Time Taken Comments Blood Pressure 120/80 09/16/2023 9:37 AM EST Pulse - - Temperature - - Respiratory Rate - - Oxygen Saturation - - Inhaled Oxygen Concentration - - Weight 103 kg (228 lb) 09/16/2023 9:37 AM EST Height 167.6 cm (5' 6 ) 09/01/2023 6:09 PM EST Body Mass Index 36.8 09/01/2023 6:09 PM EST Plan of Treatment Not on file Insurance [facility] Care Teams Military Pay Clerk Relationship Specialty Start Date End Date Lloyd Andrews MD PCP - General Family Medicine 09/01/23
[2025-01-26 13:20] LABS: Hematocrit 42.0 % (36.0-48.0); Hemoglobin 13.8 g/dL (12.0-16.0); Immature Granulocytes Abs Auto 0.01 10^3/uL (0.00-0.03); Immature Granulocytes Pct Auto 0.2 % (0.0-0.5); Lymphocytes Absolute Auto 1.2 10^3/uL (1.2-3.8); Mean Corpuscular HGB Conc 32.9 g/dL (29.9-35.2); Mean Corpuscular Hemoglobin 29.8 pg (26.7-34.0); Mean Corpuscular Volume 90.7 fL (81.0-99.0); Platelet Count 276 10^3/uL (150-450); Red Blood Count 4.63 10^6/uL (4.20-5.40); White Blood Count 4.5 10^3/uL (4.0-11.0)
--- OUTSIDE RECORDS SUMMARY | 2025-01-26 13:32 | XMS_ITS | CCD ---
Author Organization [facility] Care Team Providers Care Hearse Driver Name Role Phone DR LYNNE LENNON Admitting DR LYNNE Rodney Attending Unavailable DR LYNNE LENNON Primary Care Unavailable ALEX HERMAN Attending Unavailable ALEX HERMAN Attending Unavailable Allergies Allergy Classification Reported Allergen(s) Allergy Type Date of Onset Reaction(s) Facility (1 source) Penicillins Drug allergy (disorder) [facility] Repository (1 source) Sulfonamides (Antibiotic) Drug allergy (disorder) [facility] Encounters Encounter Date Encounter Type Care Provider Facility Start: 09-16-2023 End: 09-17-2023 ambulatory ALEX Scarlett JAFFEO Not Available Start: 09-01-2023 End: 09-02-2023 ambulatory ALEX Scarlett JAFFEO Not Available Start: 04-23-[address] LYNNE LENNON Facility : Payers Date Payer Category Payer Unknown [id number] 1970 Unknown [id number] 1970 Unknown [id number] 1970 Unknown [id number] 1959 Self-pay [id number] Summary Purpose Family History No Family History Records FoundNo Family History Records Found Advance Directives No Advanced Directives Records FoundNo Advanced Directives Records Found Additional Source Comments INFORMATION SOURCE (unrecogn ized section and content) DATE CREATED AUTHOR 04/23/2022 [facility] DATE CREATED AUTHOR 'Luis Manuel [employer] 09/21/2023 [facility] EPIC FOR RECORDS PERTAINING TO [...] BE BASED ON THE PRIMARY CLINICAL RECORDS. [facility] provides no warranty or guarantee of the accuracy or completeness of information in this document.
[2025-01-26 13:43] LABS: Iron 86.0 ug/dL (50.0-170.0)
[2025-01-26 13:57] LABS: Alanine Aminotransferase 29 U/L (14-59); Albumin Globulin Ratio 1.1; Albumin Level 3.7 g/dL (3.4-5.0); Alkaline Phosphatase 82 U/L (46-116); Anion Gap 10.1; Aspartate Amino Transferase 17 U/L (15-37); Blood Urea Nitrogen 11.0 mg/dL (7.0-18.0); Calcium 9.5 mg/dL (8.5-10.1); Carbon Dioxide 27.9 mmol/L (21.0-32.0); Chloride 106 mmol/L (98-107); Cholesterol 163 mg/dL (<=200); Estimated GFR (African America >60 (>=60 mL/min/1.73m^2); Estimated GFR (Non-African Ame >60 (>=60 mL/min/1.73m^2); Free T3 2.34 pg/mL (2.18-3.98); Globulin 3.4 g/dL; Glucose 96 mg/dL (74-106); HDL Cholesterol 62 mg/dL (40-60); Potassium 4.0 mmol/L (3.5-5.1); Sodium 140 mmol/L (136-145); Thyroid Stimulating Hormone 0.915 uIU/mL (0.358-3.740); Total Protein 7.1 g/dL (6.4-8.2); Triglycerides 70 mg/dL (<=150); VLDL CHOLESTEROL 14.0 mg/dL
== END 2025-01-26 12:56 | disposition home or self-care (01) ==
LOC: LAB 12:58
PROVIDERS: PCP Family Medicine; Visit Provider Family Medicine
DX: Z00.00 Encounter for general adult medical examination without abnormal findings (principal)
CPT/HCPCS: 36415; 80053; 80061; 82306; 83036; 83525; 83540; 84436; 84443; 84481; 85025